=== PATIENT | female | born 1980 | race Caucasian/White ===

== ENCOUNTER 2019-04-03 04:12 | Emergency (ER) | payer OTHER ==
[~2019-04-03] VITALS: Ht 167.6 cm; Wt 79.4 kg
[2019-04-03] MEDS ORDERED: CLONAZEPAM 1 MG1 M1 PO (04:20)
[2019-04-03 05:34] LABS: ABSOLUTE NEUTROPHILS 2.5 thou/uL (1.4-8.2); BASOPHILS 0.7 % (0.0-2.0); EOSINOPHILS 1.6 % (0.0-3.0); HEMATOCRIT 36.2 % (37.0-47.0); HEMOGLOBIN 12.2 gm/dL (12.0-15.0); LYMPHOCYTES 45.5 % (24.0-44.0); MCH 31.7 pg (26.0-34.0); MCHC 33.7 g/dL (28.0-37.0); MCV 93.8 fL (80.0-100.0); MONOCYTES 4.9 % (1.0-8.0); PLATELET COUNT 258 thou/uL (150-400); POLYS 47.3 % (36.0-66.0); RBC 3.86 mil/uL (4.20-5.00); RDW 14.2 % (10.5-14.5); WBC 5.2 thou/uL (4.0-11.0)
[2019-04-03 05:40] LABS: CALCIUM 8.2 mg/dL (8.5-10.1); CREATININE 0.5 mg/dL (0.6-1.0)
[2019-04-03 06:09] LABS: AMP/METHAMP Negative (Negative); BARBITURATES Negative (Negative); BENZODIAZEPINES Negative (Negative); COCAINE Negative (Negative); METHADONE Negative (Negative); OPIATES Negative (Negative); PCP Negative (Negative)
[2019-04-03 14:30] VITALS: BP 113/79
== END 2019-04-03 14:30 | disposition home or self-care (01) ==
LOC: ER 04:12
PROVIDERS: Emergency Medicine
DX: Z91.013 Allergy to seafood (principal); R41.82 Altered mental status, unspecified

== ENCOUNTER 2019-12-16 01:31 | Emergency (ER) | payer OTHER ==
[~2019-12-16] VITALS: Ht 167.6 cm; Wt 88.0 kg
[~2019-12-16 01:31] MED LIST: CLONAZEPAM 1 MG1 M1 PO
[2019-12-16] MEDS ORDERED: PROZAC40 MG PO (01:38)
[2019-12-16] MEDS ORDERED: BUSPAR30 MG PO (01:38)
[2019-12-16 04:05] VITALS: BP 115/62
[2019-12-16] MEDS ORDERED: ATIVAN1 M1 PO (04:06)
--- NOTE | 2019-12-16 08:12 | EKG ---
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
== END 2019-12-16 04:15 | disposition home or self-care (01) ==
LOC: ER 01:31
DX: F41.0 Panic disorder [episodic paroxysmal anxiety] (principal); R42 Dizziness and giddiness

== ENCOUNTER 2020-02-01 02:32 | Emergency (ER) | payer OTHER ==
[~2020-02-01] VITALS: Ht 167.6 cm; Wt 113.4 kg
[~2020-02-01 02:32] MED LIST changes: +ATIVAN1 M1 PO; +BUSPAR30 MG PO; +PROZAC40 MG PO
[2020-02-01 04:23] LABS: ABSOLUTE NEUTROPHILS 3.5 thou/uL (1.4-8.2); EOSINOPHILS 2.8 % (0.0-3.0); HEMATOCRIT 43.6 % (37.0-47.0); HEMOGLOBIN 14.3 gm/dL (12.0-15.0); LYMPHOCYTES 41.1 % (24.0-44.0); MCH 29.8 pg (26.0-34.0); MCHC 32.9 g/dL (28.0-37.0); MCV 90.7 fL (80.0-100.0); PLATELET COUNT 260 thou/uL (150-400); POLYS 50.1 % (36.0-66.0); RBC 4.81 mil/uL (4.20-5.00); RDW 14.4 % (10.5-14.5)
[2020-02-01 04:27] LABS: ANION GAP 14 mmol/L (7-16); BUN 12 mg/dL (7-18); CALCIUM 8.9 mg/dL (8.5-10.1); CHLORIDE 107 mmol/L (98-107); CO2 23 mmol/L (21-32); CREATININE 0.6 mg/dL (0.6-1.0); GLUCOSE 112 mg/dL (74-106); POTASSIUM 3.8 mmol/L (3.5-5.1); SODIUM 144 mmol/L (136-145)
[2020-02-01 04:33] LABS: ALBUMIN 3.9 g/dL (3.4-5.0); SALICYLATE < 2.8 mg/dL (2.8-20.0); SGOT 15 U/L (15-37); SGPT 26 U/L (30-65); TOTAL BILIRUBIN 0.3 mg/dL (<0.1-1.0); TOTAL PROTEIN 7.4 g/dL (6.4-8.2)
--- NOTE | 2020-02-01 10:05 | EKG ---
[facility] [place] [address] ELECTROCARDIOGRAM REPORT Name: BURAK STOLL Room #: [facility]#: [id number] Admission: 02/01/20 Attend Phys: Discharge: Date of : 78 Report #: [id number] THIS REPORT FOR: cc: FAM - No family physician/PCP FAM - No family physician/PCP Fran Miranda MD [facility] THIS REPORT FOR: //name// [facility] ED Test Date: 2020-02-01 Test Time: 04:15:43 Pat Name: BURAK STOLL Department: Room: Gender: F [employer]: SARAN : 1980 Requested By: Guilherme Yip Order Number: [id number] MD: Fran Miranda Measurements Intervals [place] Rate: 71 P: 57 [place]: 175 QRS: 51 QRSD: 104 T: 39 QT: 408 QTc: 444 Interpretive Statements Sinus rhythm Minimal ST elevation, diffuse leads, probably early repolarization Compared to ECG 12/16/2019 01:52:45 No significant change was found Electronically Signed On 02-01-2020 10:03:39 CDT by Fran Miranda [email or web address] <ELECTRONICALLY SIGNED> By: Fran Miranda MD, FACC 02/01/20 1003 0415 0415 Fran Miranda MD, [facility] /EPI
[2020-02-01 20:25] LABS: URINE BILIRUBIN NEGATIVE (Negative); URINE BLOOD NEGATIVE (Negative); URINE CLARITY CLEAR; URINE COLOR YELLOW; URINE GLUCOSE-RANDOM* NEGATIVE (Negative); URINE KETONES NEGATIVE (Negative); URINE LEUKOCYTES-REFLEX NEGATIVE (Negative); URINE NITRITE-REFLEX NEGATIVE (Negative); URINE PROTEIN (DIPSTICK) NEGATIVE (Negative); URINE SPECIFIC GRAVITY 1.015 (1.005-1.035); URINE UROBILINOGEN 0.2 E.U./dl (0.2-1.0)
[2020-02-01 20:38] LABS: AMP/METHAMP Negative (Negative); BARBITURATES Negative (Negative); BENZODIAZEPINES Negative (Negative); COCAINE Negative (Negative); METHADONE Negative (Negative); OPIATES Negative (Negative); PCP Negative (Negative)
[2020-02-02 00:16] VITALS: BP 116/61
== END 2020-02-02 00:24 | disposition still patient (30) ==
LOC: ER 02:32
PROVIDERS: Emergency Medicine; Emergency Medicine Emergency Medical Services
DX: F10.129 Alcohol abuse with intoxication, unspecified (principal); R45.851 Suicidal ideations; F41.9 Anxiety disorder, unspecified; R41.82 Altered mental status, unspecified; Z79.899 Other long term (current) drug therapy; Y90.9 Presence of alcohol in blood, level not specified

== ENCOUNTER 2020-03-07 00:58 | Emergency (ER) | payer OTHER ==
[~2020-03-07] VITALS: Ht 167.6 cm; Wt 90.7 kg
[2020-03-07 01:51] LABS: ABSOLUTE NEUTROPHILS 3.2 thou/uL (1.4-8.2); BASOPHILS 0.7 % (0.0-2.0); EOSINOPHILS 2.1 % (0.0-3.0); HEMATOCRIT 34.4 % (37.0-47.0); HEMOGLOBIN 11.6 gm/dL (12.0-15.0); LYMPHOCYTES 43.6 % (24.0-44.0); MCH 30.1 pg (26.0-34.0); MCHC 33.7 g/dL (28.0-37.0); MCV 89.4 fL (80.0-100.0); MONOCYTES 6.6 % (1.0-8.0); PLATELET COUNT 232 thou/uL (150-400); RBC 3.85 mil/uL (4.20-5.00); RDW 16.3 % (10.5-14.5); WBC 6.8 thou/uL (4.0-11.0)
[2020-03-07 01:57] LABS: ANION GAP 12 mmol/L (7-16); BUN 17 mg/dL (7-18); CALCIUM 8.2 mg/dL (8.5-10.1); CHLORIDE 102 mmol/L (98-107); CO2 26 mmol/L (21-32); CREATININE 0.7 mg/dL (0.6-1.0); GLUCOSE 113 mg/dL (74-106); POTASSIUM 3.4 mmol/L (3.5-5.1); SALICYLATE < 2.8 mg/dL (2.8-20.0); SODIUM 140 mmol/L (136-145)
[2020-03-07 02:16] LABS: AMP/METHAMP Negative (Negative); BARBITURATES Negative (Negative); BENZODIAZEPINES Negative (Negative); COCAINE Negative (Negative); METHADONE Negative (Negative); OPIATES Negative (Negative); PCP Negative (Negative)
[2020-03-07 16:52] VITALS: BP 140/80
== END 2020-03-07 16:52 | disposition home or self-care (01) ==
LOC: ER 00:58
PROVIDERS: Student in an Organized Health Care Education/Training Program
DX: F10.120 Alcohol abuse with intoxication, uncomplicated (principal); F41.9 Anxiety disorder, unspecified; R45.851 Suicidal ideations; Z79.899 Other long term (current) drug therapy